=== PATIENT | male | born 1975 | race African-American/Black ===

== ENCOUNTER 2017-02-08 17:13 | Inpatient (IN) | payer OTHER ==
[2017-02-08 21:01] VITALS: BMI 40.8
--- NOTE | 2017-02-08 21:17 | HP ---
CIWA Score - CIWA Score Nausea/Vomitin-Mild Nausea/No Vomiting Muscle Tremors: 3 Anxiety: 3 Agitation: 2 Paroxysmal Sweats: 2 Orientation: 0-Oriented Tacttile Disturbances: 1-Very Mild Itch/Numbness Auditory Disturbances: 1-Very Mild Visual Disturbances: 1-Very Mild Sensitivity Headache: 1-Very Mild CIWA-Ar Total Score: 15 Admission ROS S - HPI Chief Complaint: WITHDRAWAL SYMPTOMS Allergies/Adverse Reactions: Allergies Allergy/AdvReac Type Severity Reaction Status Date / Time No Known Allergies Allergy Verified 02/08/17 21:15 History of Present Illness: 41 Y.O. MAN WITH AN EXTENSIVE HISTORY OF DRUG AND ALCOHOL DEPENDENCE IS HERE SEEKING DETOX. HE REPORTS HE PREVIOUSLY COMPLETED DETOX AT ANOTHER FACILITY BUT THIS IS HIS FIRST ADMISSION TO [facility]. DOES NOT HAVE A SIGNIFICANT PERIOD OF SOBRIETY. Exam Limitations: No Limitations - Ebola screening Have you traveled outside of the country in the last 21 days: No Have you had contact with anyone from an Ebola affected area: No Have you been sick,other than usual withdrawal symptoms: No Do you have a fever: No - Review of Systems Constitutional: Unintentional Wgt. Loss EENT: reports: No Symptoms Reported Respiratory: reports: No Symptoms reported Cardiac: reports: No Symptoms Reported GI: reports: Vomiting, Abdominal cramping : reports: No Symptoms Reported Musculoskeletal: reports: No Symptoms Reported Integumentary: reports: No Symptoms Reported Neuro: reports: No Symptoms reported Endocrine: reports: No Symptoms Reported Hematology: reports: No Symptoms Reported Psychiatric: reports: Mood/Affect Appropiate, Orientated x3 Other Systems: Reviewed and Negative Patient History - Patient Medical History Hx Anemia: No Hx Asthma: No Hx Chronic Obstructive Pulmonary Disease (COPD): No Hx Cancer: No Hx Cardiac Disorders: No Hx Congestive Heart Failure: No Hx Hypertension: No Hx Hypercholesterolemia: No Hx Pacemaker: No HX Cerebrovascular Accident: No Hx Seizures: No Hx Dementia: No Hx Diabetes: No Hx Gastrointestinal Disorders: No Hx Liver Disease: No Hx Genitourinary Disorders: No Hx Sexually Transmitted Disorders: No Hx Renal Disease (ESRD): No Hx Thyroid Disease: No Hx Human Immunodeficiency Virus (HIV): No Hx Hepatitis C: No Hx Depression: No Hx Suicide Attempt: No Hx Bipolar Disorder: No Hx Schizophrenia: No Other Medical History: HISTORY OF TUBERCULOSIS (TREATED IN 2000) - Patient Surgical History Past Surgical History: No - PPD History Previous Implant?: No Documented Results: Positive w/o proof Implanted On Prior [facility] Admission?: No Results: NEEDS CXR PPD to be Administered?: No - Reproductive History Patient is a Female of Child Bearing Age (11 -55 yrs old): No - Smoking Cessation Smoking history: Current every day smoker Have you smoked in the past 12 months: Yes Aproximately how many cigarettes per day: 10 Hx Chewing Tobacco Use: No Initiated information on smoking cessation: Yes 'Breaking Loose' booklet given: 02/08/17 - Substance & Tx. History Hx Alcohol Use: Yes Hx Substance Use: Yes Substance Use Type: Alcohol, Marijuana Hx Substance Use Treatment: Yes (DETOX-DOES NOT RECALL WHEN & WHERE BUT NOT RECENTLY) - Substances Abused Alcohol Frequency: Daily Amount used: 5-6 PINTS OF LIQUOR Age of first use: 16 Date of Last Use: 02/08/17 Marijuana/Hashish Route: Smoking Frequency: Daily Amount used: $40 Age of first use: 16 Date of Last Use: 02/08/17 Family Disease History - Family Disease History Family History: Denies Admission Physical Exam [facility] - Vital Signs Vital Signs: Vital Signs - 24 hr 02/08/17 20:59 Temperature 97.8 F Pulse Rate 73 Respiratory 20 Rate Blood Pressure 128/74 - Physical General Appearance: Yes: No Apparent Distress, Nourished HEENTM: Yes: Hearing grossly Normal, Normocephalic, Normal Voice Respiratory: Yes: Lungs Clear, Normal Breath Sounds, No Respiratory Distress, No Accessory Muscle Use Neck: Yes: No masses,lesions,Nodules, Trachea in good position Breast: Yes: Breast Exam Deferred Cardiology: Yes: Regular Rhythm, Regular Rate, Edema (B/L LE) Abdominal: Yes: Normal Bowel Sounds, Non Tender, Flat Genitourinary: Yes: Other (NO COMPLAINTS REPORTED) Musculoskeletal: Yes: Gait Steady Extremities: Yes: Pedal Edema, Swelling (B/L LE) Neurological: Yes: Fully Oriented, Alert, Motor Strength 5/5, Normal Mood/Affect , Normal Response Integumentary: Yes: Pitting Edema (B/L LE) Lymphatic: Yes: Within Normal Limits - Diagnostic (1) Alcohol dependence with uncomplicated withdrawal Current Visit: Yes Status: Chronic (2) Cannabis dependence, uncomplicated Current Visit: Yes Status: Chronic (3) History of tuberculosis Current Visit: Yes Status: Chronic (4) Venous insufficiency of both lower extremities Current Visit: Yes Status: Chronic (5) Edema of both lower legs due to peripheral venous insufficiency Current Visit: Yes Status: Chronic (6) Obese Current Visit: Yes Status: Chronic Cleared for Admission [facility] - Detox or Rehab [facility] Level of Care: Medically Managed Detox Regimen/Protocol: Librium S Breath Alcohol Content Breath Alcohol Content: 0 Urine Drug Screen - Results Drug Screen Negative: No Urine Drug Screen Results: THC-Marijuana
[2017-02-08] MEDS ORDERED: chlordiazePOXIDE HCL 25 MG CAPSULE PO ONE (21:24)
[2017-02-08] MEDS ORDERED: guaiFENesin/D-METHORPHAN HB 10 ML UNIT-DOSE CUPS PO PRN (21:24)
[2017-02-08] MEDS ORDERED: IBUPROFEN 400 MG TABLET (FP) PO PRN (21:24)
[2017-02-08] MEDS ORDERED: NICOTINE POLACRILEX 2 MG GUM BUC PRN (21:24)
[2017-02-08] MEDS ORDERED: LOPERAMIDE HCL 2 MG CAPSULE PO PRN (21:24)
[2017-02-08] MEDS ORDERED: MAGNESIUM CITRATE 300 ML BOTTLE PO PRN (21:24)
[2017-02-08] MEDS ORDERED: diphenhydrAMINE HCL 50 MG CAPSULE PO PRN (21:24)
[2017-02-08] MEDS ORDERED: ACETAMINOPHEN 325 MG TABLET (FP) PO PRN (21:24)
[2017-02-08] MEDS ORDERED: MAG HYDROX/AL HYDROX/SIMETH 30 ML UNIT-DOSE CUP PO PRN (21:24)
[2017-02-08] MEDS ORDERED: hydrOXYzine PAMOATE 50 MG CAPSULE (FP) PO PRN (21:24)
[2017-02-08] MEDS ORDERED: MAGNESIUM HYDROX 2400MG/30ML ORAL SUSPENSION 30 ML CUP PO PRN (21:24)
[2017-02-08] MEDS ORDERED: chlordiazePOXIDE HCL 25 MG CAPSULE PO PRN (21:24)
[2017-02-08] MEDS ORDERED: MENTHOL/PHENOL 1 EACH UD MM PRN (21:24)
[2017-02-08] MEDS ORDERED: P-EPHED 60MG/TRIPROLIDI 2.5MG TABLET PO PRN (21:24)
[2017-02-08] MEDS ORDERED: THIAMINE HCL 100 MG TABLET (FP) PO SCH (22:00)
[2017-02-08] MEDS: chlordiazePOXIDE HCL 25 MG CAPSULE PO SCH (23:14)
[2017-02-09] MEDS: chlordiazePOXIDE HCL 25 MG CAPSULE PO SCH ×2 (05:57→10:54)
[2017-02-09 09:54] LABS: MCH 29.5 pg (25.7-33.7); MCHC 33.6 g/dl (32.0-35.9); MEAN CELL VOLUME 87.8 fl (80-96); MEAN PLT VOLUME 10.3 fl (7.5-11.1); PLATELET COUNT 203 K/MM3 (134-434); RDW 13.6 % (11.9-15.9); WHITE BLOOD COUNT 9.7 K/mm3 (4.0-10.0)
[2017-02-09 09:55] LABS: ALBUMIN 3.3 g/dl (3.4-5.0); ANION GAP 6 (8-16); CALCIUM 9.1 mg/dL (8.5-10.1); CO2 28 mmol/L (21-32); CREATININE 1.1 mg/dL (0.7-1.3); GLUCOSE,RANDOM 86 mg/dL (74-106); SGOT/AST 17 U/L (15-37); SGPT/ALT 28 U/L (12-78)
[2017-02-09 09:57] LABS: ALK PHOS 64 U/L (45-117); BILIRUBIN,TOTAL 0.6 mg/dL (0.2-1.0); TOT PROT 6.2 g/dl (6.4-8.2)
[2017-02-09] MEDS ORDERED: PRENATAL VITAMINS W/ FOLIC ACID TABLET (FP) PO SCH (10:00)
[2017-02-09] MEDS ORDERED: NICOTINE 14 MG/24 HOURS TOPICAL PATCH TD SCH (10:00)
[2017-02-09 10:48] LABS: HIV 1 & 2 AB NEGATIVE; HIV 1 AGp24 NEGATIVE
--- NOTE | 2017-02-09 11:30 | PN ---
[facility] CIWA - CIWA Score Nausea/Vomitin-No Nausea/No Vomiting Muscle Tremors: 4-Moderate,w/Arms Extend Anxiety: 4-Mod. Anxious/Guarded Agitation: 4-Moderately Restless Paroxysmal Sweats: 1-Minimal Palms Moist Orientation: 0-Oriented Tacttile Disturbances: 3-Moderate Itch/Numb/Burn Auditory Disturbances: 0-None Visual Disturbances: 0-None Headache: 0-None Present CIWA-Ar Total Score: 16 S Progress Note (SOAP) Subjective: ANXIETY,DIARRHEA, SWEATS. Objective: 02/09/17 11:28 Vital Signs Temperature 98.6 F 02/09/17 09:33 Pulse Rate 58 L 02/09/17 09:33 Respiratory Rate 18 02/09/17 09:33 Blood Pressure 124/81 02/09/17 09:33 O2 Sat by Pulse Oximetry (%) Laboratory Last Values WBC 9.7 K/mm3 (4.0-10.0) 02/09/17 07:00 RBC 4.64 M/mm3 (4.00-5.60) 02/09/17 07:00 Hgb 13.7 GM/dL (11.7-16.9) 02/09/17 07:00 Hct 40.7 % (35.4-49) 02/09/17 07:00 MCV 87.8 fl (80-96) 02/09/17 07:00 MCHC 33.6 g/dl (32.0-35.9) 02/09/17 07:00 RDW 13.6 % (11.9-15.9) 02/09/17 07:00 Plt Count 203 K/MM3 (134-434) 02/09/17 07:00 MPV 10.3 fl (7.5-11.1) 02/09/17 07:00 Sodium 143 mmol/L (136-145) 02/09/17 07:00 Potassium 4.7 mmol/L (3.5-5.1) 02/09/17 07:00 Chloride 109 mmol/L (98-107) H 02/09/17 07:00 Carbon Dioxide 28 mmol/L (21-32) 02/09/17 07:00 Anion Gap 6 (8-16) L 02/09/17 07:00 BUN 15 mg/dL (7-18) 02/09/17 07:00 Creatinine 1.1 mg/dL (0.7-1.3) 02/09/17 07:00 Creat Clearance w eGFR > 60 (>60) 02/09/17 07:00 Random Glucose 86 mg/dL (74-106) 02/09/17 07:00 Calcium 9.1 mg/dL (8.5-10.1) 02/09/17 07:00 Total Bilirubin 0.6 mg/dL (0.2-1.0) 02/09/17 07:00 AST 17 U/L (15-37) 02/09/17 07:00 ALT 28 U/L (12-78) 02/09/17 07:00 Alkaline Phosphatase 64 U/L (45-117) 02/09/17 07:00 Total Protein 6.2 g/dl (6.4-8.2) L 02/09/17 07:00 Albumin 3.3 g/dl (3.4-5.0) L 02/09/17 07:00 HIV 1&2 Antibody Screen Negative 02/09/17 07:00 HIV P24 Antigen Negative 02/09/17 07:00 Assessment: 02/09/17 11:29 WITHDRAWAL SX Plan: CONTINUE DETOX IMODIUM PRN
[2017-02-09 14:17] VITALS: BP 113/77; PULSE 70; TEMP 95.5
--- NOTE | 2017-02-09 14:24 | PN ---
Psychiatric Progress Note Vital Signs: Vital Signs Period Temp Pulse Resp BP Sys/Nino Pulse Ox Last 24 Hr 97.0 F-98.6 F 58-73 18-20 118-128/74-82 Date of Session: 02/09/17 Chief Complaint:: Violent behavor, HPI: As per nursing reports patient has been masturbating on pablic in a lobby, poice was called, patient promissed not to do this anymore. In an one hour police was called second time after incident with counceller when patient has been threatening counceller talling him to punch to his face. Upon evaluation patient calling other patients to [facility] psychiatric evaluation, Current Medications: Active Medications Generic Name Dose Route Start Last Admin Trade Name Freq PRN Reason Stop Dose Admin Acetaminophen 650 mg 02/08/17 21:24 Tylenol - PO Q4H PRN FEVER OR PAIN Al Hydroxide/Mg Hydroxide 30 ml 02/08/17 21:24 Mylanta Oral Suspension - PO Q6H PRN DYSPEPSIA Chlordiazepoxide HCl 10 mg 02/11/17 23:00 Librium - PO 02/12/17 17:01 [id number] JENNIFER Chlordiazepoxide HCl 25 mg 02/08/17 21:24 Librium - PO 02/11/17 21:23 Q4H PRN WITHDRAWAL(CONT SUBST) Chlordiazepoxide HCl 50 mg 02/08/17 23:00 02/09/17 10:54 Librium - PO 02/09/17 17:01 50 mg [id number] JENNIFER Administration Chlordiazepoxide HCl 25 mg 02/09/17 23:00 Librium - PO 02/10/17 17:01 [id number] JENNIFER Chlordiazepoxide HCl 15 mg 02/10/17 23:00 Librium - PO 02/11/17 17:01 [id number] JENNIFER Diphenhydramine HCl 50 mg 02/08/17 21:24 Benadryl - PO HSMR1 PRN INSOMNIA Eucalyptus/Menthol/Phenol/Sorbitol 1 each 02/08/17 21:24 Cepastat Lozenge - MM Q4H PRN SORE THROAT Guaifenesin 10 ml 02/08/17 21:24 Robitussin Dm - PO Q6H PRN COUGH Hydroxyzine Pamoate 50 mg 02/08/17 21:24 Vistaril - PO Q4H PRN AGITATION Ibuprofen 400 mg 02/08/17 21:24 Motrin - PO Q6H PRN SEVERE PAIN Loperamide HCl 4 mg 02/08/17 21:24 Imodium - PO Q6H PRN DIARRHEA Magnesium Citrate 300 ml 02/08/17 21:24 Citroma - PO Q48H PRN CONSTIPATION Magnesium Hydroxide 30 ml 02/08/17 21:24 Milk Of Magnesia - PO DAILY PRN CONSTIPATION Nicotine 14 mg 02/09/17 10:00 02/09/17 10:55 Nicoderm Patch - TD Not Given DAILY JENNIFER Nicotine Polacrilex 2 mg 02/08/17 21:24 Nicorette Gum - BUC Q2H PRN NICOTINE REPLACEMENT RX Multivit/Folic Acid/Iron 1 tab 02/09/17 10:00 02/09/17 10:54 Vitamins ([facility]) - PO 1 tab DAILY JENNIFER Administration Pseudoephedrine/Triprolidine 1 combo 02/08/17 21:24 Actifed - PO TID PRN NASAL CONGESTION Thiamine HCl 100 mg 02/08/17 22:00 02/08/17 23:09 Vitamin B1 - PO 100 mg HS JENNIFER Administration Provider note:: According to detox protocol patient has to be administratively discharged Mental Status Exam - Mental Status Exam Alert and Oriented to: Person Cognitive Function: Fair Patient Appearance: Unkempt Mood: Nervous, Anxious, Irritable Affect: Inappropriate Patient Behavior: Inappropriate Speech Pattern: Pressured Voice Loudness: Mildly Loud Thought Process: Goal Oriented Thought Disorder: Being Controlled Hallucinations: Denies Suicidal Ideation: Denies Homicidal Ideation: Denies Insight/Judgement: Fair Sleep: Fair Appetite: Weight gain Muscle strength/Tone: Normal Gait/Station: Normal Additional Comments: conflict with medical stuff Psychiatric Treatment Plan - Problem List (1) Alcohol dependence with uncomplicated withdrawal Current Visit: Yes (2) Cannabis dependence, uncomplicated Current Visit: Yes (3) Obese Current Visit: Yes (4) Inappropriate sexual behavior Current Visit: Yes (5) Socially inappropriate behavior Current Visit: Yes Initial treatment plan: Administrative discharge
--- NOTE | 2017-02-09 14:46 | EKG ---
Test Reason : Blood Pressure : / mmHG Vent. Rate : 053 BPM Atrial Rate : 053 BPM P-R Int : 146 ms QRS Dur : 088 ms QT Int : 436 ms P-R-T Axes : 060 005 038 degrees QTc Int : 409 ms SINUS BRADYCARDIA OTHERWISE NORMAL ECG NO PREVIOUS ECGS AVAILABLE Confirmed by MODESTO BETH, RAHEL ([id number]) on 02/09/2017 2:46:10 PM Referred By: John Miner Confirmed By:RAHEL SALVADOR MD
--- NOTE | 2017-02-09 15:00 | DS ---
[facility] Detox Discharge Summary Admission Date: 02/08/17 Discharge Date: 02/09/17 - History Present History: Alcohol Dependence, Cannabis Dependence Additional Comments: TIS DIRECTOR SOCIAL WAS CALLED BY NURSE TO REPORT PATIENT INDECENT EXPOSURE AND MASTURBATION ON THE HALLWAY. PT FURTHER THREATENING THE COUNSELOR IN THE OFFICE STATING "I'LL F--K YOU UP". ROLLOFF TRUCK DRIVER ALSO REPORTED PT EXPOSED HIMSELF SHE APPROACHED THE ROOM FOR PATIENT CARE. PT WAS SEEN BY PSYCH TODAY. PT DISCHARGED PER PROTOCOL FOR INAPPROPRIATE SEXUAL AND SOCIAL BEHAVIOR. ALERT O X3. NAD. Pertinent Past History: OBESITY HX VENOUS INSUFFICIENCY LOWER EXTREMITIES - Physical Exam Results Vital Signs: Vital Signs Temperature 95.5 F L 02/09/17 14:16 Pulse Rate 70 02/09/17 14:16 Respiratory Rate 18 02/09/17 14:16 Blood Pressure 113/77 02/09/17 14:16 O2 Sat by Pulse Oximetry (%) Pertinent Admission Physical Exam Findings: WITHDRAWAL SX - Treatment Hospital Course: Discharged Condition Good - Medication Discharge Medications: Ambulatory Orders NK [No Known Home Medication] 02/08/17 - Diagnosis (1) Inappropriate sexual behavior Current Visit: Yes Status: Acute (2) Socially inappropriate behavior Current Visit: Yes Status: Acute (3) Alcohol dependence with uncomplicated withdrawal Current Visit: Yes Status: Acute (4) Cannabis dependence, uncomplicated Current Visit: Yes Status: Chronic (5) History of tuberculosis Current Visit: Yes Status: Chronic (6) Obese Current Visit: Yes Status: Chronic (7) Edema of both lower legs due to peripheral venous insufficiency Current Visit: Yes Status: Chronic (8) Venous insufficiency of both lower extremities Current Visit: Yes Status: Chronic - AMA Did Patient Leave Against Medical Advice: No (INAPPROPRIATE SEXUAL AND SOCIAL BEHAVIOR)
--- NOTE | 2017-02-09 15:09 | CONSULT ---
[facility] Psychiatric Consult - Data Date of interview: 02/09/17 Admission source: [facility] Identifying data: This is 41 years old male with no past psychiatric history intoxicated with Alcohol Nicotine and Cannabis. was called to evaluate patient after medical stuff reporte two incidents, inappropriate sexual behavior and conflict with counceller. Substance Abuse History: - Smoking Cessation. Smoking history: Current every day smoker. Have you smoked in the past 12 months: Yes. Aproximately how many cigarettes per day: 10. Hx Chewing Tobacco Use: No. Initiated information on smoking cessation: Yes. 'Breaking Loose' booklet given: 02/08/17. - Substance & Tx. History. Hx Alcohol Use: Yes. Hx Substance Use: Yes. Substance Use Type : Alcohol, Marijuana. Hx Substance Use Treatment: Yes (DETOX-DOES NOT RECALL WHEN & WHERE BUT NOT RECENTLY). - Substances Abused. Alcohol. Frequency: Daily. Amount used: 5-6 PINTS OF LIQUOR. Age of first use: 16. Date of Last Use: 02/08/17. Marijuana/Hashish. Route: Smoking. Frequency: Daily. Amount used: $40. Age of first use: 16. Date of Last Use: 02/08/17 Medical History: Obesity, History of TBC Psychiatric History: As per nursing reports patient has been masturbating on pablic in a lobby, security was called, patient promissed not to do this anymore. In an one hour police was called second time after second incident with counceller when patient has been threatening counceller talling him to punch to his face. Upon evaluation patient called other patients to be eyewhitness during psychiatric evaluation, when keno writer/runner told patient to be evaluated face to face patient has been relactant to do that, finally patient agrees to be evaluated. Physical/Sexual Abuse/Trauma History: Denies Additional Comment: Observation. Incidents with medical stuff and Counceller Mental Status Exam - Mental Status Exam Alert and Oriented to: Person Cognitive Function: Fair Patient Appearance: Unkempt Mood: Anxious Affect: Mood Congruent Patient Behavior: Talkative, Agitated Speech Pattern: Excessive Voice Loudness: Mildly Loud Thought Process: Goal Oriented Thought Disorder: Being Controlled Hallucinations: Denies Suicidal Ideation: Denies Homicidal Ideation: Denies Insight/Judgement: Fair Sleep: Fair Appetite: Weight gain Muscle strength/Tone: Normal Gait/Station: Normal Additional Comments: Observation Psychiatric Findings - Problem List ([place] 1, 2,3) (1) Alcohol dependence with uncomplicated withdrawal Current Visit: Yes Status: Acute (2) Cannabis dependence, uncomplicated Current Visit: Yes Status: Chronic (3) Obese Current Visit: Yes Status: Chronic (4) Inappropriate sexual behavior Current Visit: Yes Status: Acute (5) Socially inappropriate behavior Current Visit: Yes Status: Acute (6) Nicotine dependence Current Visit: Yes Status: Acute - Initial Treatment Plan Initial Treatment Plan: Administrative discharge after incident with counceller
[2017-02-09] MEDS ORDERED: chlordiazePOXIDE HCL 25 MG CAPSULE PO SCH (23:00)
[2017-02-10] MEDS ORDERED: chlordiazePOXIDE 5 MG CAPSULE PO SCH (23:00)
[2017-02-11] MEDS ORDERED: chlordiazePOXIDE HCL 10 MG CAPSULE PO SCH (23:00)
== END 2017-02-09 14:00 | disposition home or self-care (01) | DRG 774 ==
LOC: YASAS 17:13 → Y3N 22:00
PROVIDERS: ADMIT Internal Medicine; ATTEND Internal Medicine
PROC: HZ2ZZZZ Detoxification Services for Substance Abuse Treatment (ICD-10-PCS; principal; 2017-02-08)
DX: F14.20 Cocaine dependence, uncomplicated (principal); F17.210 Nicotine dependence, cigarettes, uncomplicated; E66.9 Obesity, unspecified; Z68.41 Body mass index [BMI] 40.0-44.9, adult; Z86.11 Personal history of tuberculosis; I73.9 Peripheral vascular disease, unspecified; R60.9 Edema, unspecified; F66 Other sexual disorders; F91.8 Other conduct disorders
CPT/HCPCS: 36415; 71020-TC; 80053; 85027; 86593; 86803; 87389; 93005; 93010

== ENCOUNTER 2017-03-15 14:31 | Inpatient (IN) | payer OTHER ==
[2017-03-15 18:03] VITALS: BMI 38.9
--- NOTE | 2017-03-15 20:29 | HP ---
Admission ROS [facility] - [facility] Chief Complaint: i am here for rehab from alcohol and marijuana Allergies/Adverse Reactions: Allergies Allergy/AdvReac Type Severity Reaction Status Date / Time No Known Allergies Allergy Verified 03/15/17 19:12 History of Present Illness: this 41 years old male with alcohol and marijuana dependence,seeking rehab,last treatment 02/08/17 to 02/09/17 not completed denied medical problem nicotine dependence longest period of sobriety 2 years Exam Limitations: No Limitations - Ebola screening Have you been sick,other than usual withdrawal symptoms: No - Review of Systems Constitutional: No Symptoms Reported EENT: reports: No Symptoms Reported Respiratory: reports: No Symptoms reported Cardiac: reports: No Symptoms Reported GI: reports: No Symptoms Reported : reports: No Symptoms Reported Musculoskeletal: reports: No Symptoms Reported Integumentary: reports: No Symptoms Reported Neuro: reports: No Symptoms reported Endocrine: reports: No Symptoms Reported Hematology: reports: No Symptoms Reported Psychiatric: reports: No Sypmtoms Reported Patient History - Patient Medical History Hx Anemia: No Hx Asthma: No Hx Chronic Obstructive Pulmonary Disease (COPD): No Hx Cancer: No Hx Cardiac Disorders: No Hx Congestive Heart Failure: No Hx Hypertension: No Hx Hypercholesterolemia: No Hx Pacemaker: No HX Cerebrovascular Accident: No Hx Seizures: No Hx Dementia: No Hx Diabetes: No Hx Gastrointestinal Disorders: No Hx Liver Disease: No Hx Genitourinary Disorders: No Hx Sexually Transmitted Disorders: No Hx Renal Disease (ESRD): No Hx Thyroid Disease: No Hx Human Immunodeficiency Virus (HIV): No (last 03/08 negative) Hx Hepatitis C: No Hx Depression: No Hx Suicide Attempt: No Hx Bipolar Disorder: No Hx Schizophrenia: No Other Medical History: no suicidal,no homicidal - Patient Surgical History Past Surgical History: No Hx Neurologic Surgery: No Hx Cataract Extraction: No Hx Cardiac Surgery: No Hx Lung Surgery: No Hx Breast Surgery: No Hx Breast Biopsy: No Hx Abdominal Surgery: No Hx Appendectomy: No Hx Cholecystectomy: No Hx Genitourinary Surgery: No Hx Section: No Hx Orthopedic Surgery: No Anesthesia Reaction: No - PPD History Results: NEEDS CXR PPD to be Administered?: No - Smoking Cessation Smoking history: Current every day smoker Have you smoked in the past 12 months: Yes Aproximately how many cigarettes per day: 10 Cigars Per Day: 0 Hx Chewing Tobacco Use: No Initiated information on smoking cessation: Yes 'Breaking Loose' booklet given: 03/15/17 - Substance & Tx. History Hx Alcohol Use: Yes Hx Substance Use: Yes Substance Use Type: Alcohol, Marijuana Hx Substance Use Treatment: Yes ([facility] 02/08/17 to 02/09/17 not complete) - Substances Abused Alcohol Route: Oral Frequency: Daily Amount used: 3 pints of vodka,rum/6 packs of beer Age of first use: 16 Date of Last Use: 03/15/17 Marijuana/Hashish Route: Smoking Frequency: Daily Amount used: 30$ Age of first use: 16 Date of Last Use: 03/15/17 Family Disease History - Family Disease History Family History: Denies Admission Physical Exam [facility] - Vital Signs Vital Signs: Vital Signs - 24 hr 03/15/17 18:02 Temperature 96.7 F L Pulse Rate 55 L Respiratory 20 Rate Blood Pressure 128/87 - Physical General Appearance: Yes: Within Normal Limits HEENTM: Yes: Within Normal Limits, Hearing grossly Normal, Normocephalic, Pharynx Normal Respiratory: Yes: Lungs Clear, Normal Breath Sounds, No Respiratory Distress Neck: Yes: Within Normal Limits, Supple, Trachea in good position Breast: Yes: Within Normal Limits Cardiology: Yes: Within Normal Limits, Regular Rhythm, Regular Rate, S1, S2 Abdominal: Yes: Within Normal Limits, Normal Bowel Sounds, Non Tender, Flat, Soft Genitourinary: Yes: Within Normal Limits Back: Yes: Within Normal Limits, Normal Inspection Musculoskeletal: Yes: Within Normal Limits Extremities: Yes: Within Normal Limits, Normal Inspection, Normal Range of Motion, Other (both legs unna boot stated has ulcers both legs both feet no swelling) Neurological: Yes: tafe lecturer II-XII NML intact, Fully Oriented, Alert, Motor Strength 5/5 Integumentary: Yes: Within Normal Limits, Dry Lymphatic: Yes: Within Normal Limits - Diagnostic (1) Alcohol dependence Current Visit: Yes Status: Acute (2) Nicotine dependence Current Visit: No Status: Acute (3) Cannabis dependence, uncomplicated Current Visit: No Status: Chronic (4) Obese Current Visit: No Status: Chronic (5) Venous insufficiency of both lower extremities Current Visit: No Status: Chronic Cleared for Admission [facility] - Detox or Rehab Claeared for Rehab Admission: Yes [facility] Breath Alcohol Content Breath Alcohol Content: 0 Urine Drug Screen - Results Drug Screen Negative: No Urine Drug Screen Results: THC-Marijuana
[2017-03-15] MEDS ORDERED: hydrOXYzine PAMOATE 50 MG CAPSULE (FP) PO PRN (20:44)
[2017-03-15] MEDS ORDERED: MAGNESIUM HYDROX 2400MG/30ML ORAL SUSPENSION 30 ML CUP PO PRN (20:44)
[2017-03-15] MEDS ORDERED: MENTHOL/PHENOL 1 EACH UD MM PRN (20:44)
[2017-03-15] MEDS ORDERED: ACETAMINOPHEN 325 MG TABLET (FP) PO PRN (20:44)
[2017-03-15] MEDS ORDERED: MAG HYDROX/AL HYDROX/SIMETH 30 ML UNIT-DOSE CUP PO PRN (20:44)
[2017-03-15] MEDS ORDERED: MAGNESIUM CITRATE 300 ML BOTTLE PO PRN (20:44)
[2017-03-15] MEDS ORDERED: diphenhydrAMINE HCL 50 MG CAPSULE PO PRN (20:44)
[2017-03-15] MEDS ORDERED: P-EPHED 60MG/TRIPROLIDI 2.5MG TABLET PO PRN (20:44)
[2017-03-15] MEDS ORDERED: LOPERAMIDE HCL 2 MG CAPSULE PO PRN (20:44)
[2017-03-15] MEDS ORDERED: IBUPROFEN 400 MG TABLET (FP) PO PRN (20:44)
[2017-03-15] MEDS ORDERED: guaiFENesin/D-METHORPHAN HB 10 ML UNIT-DOSE CUPS PO PRN (20:44)
[2017-03-15] MEDS: THIAMINE HCL 100 MG TABLET (FP) PO SCH ×2 (21:46→22:59)
[2017-03-15 23:15] LABS: URINE APPEARANCE CLEAR; URINE BILIRUBIN NEGATIVE (NEGATIVE); URINE BLOOD 3+ (NEGATIVE); URINE COLOR LTYELLOW; URINE GLUCOSE (UA) NEGATIVE (NEGATIVE); URINE KETONE NEGATIVE (NEGATIVE); URINE LEUK ESTERASE NEGATIVE (NEGATIVE); URINE NITRITE NEGATIVE (NEGATIVE); URINE PROTEIN NEGATIVE (NEGATIVE); URINE UROBILINOGEN NEGATIVE mg/dL (0.2-1.0)
[2017-03-15 23:19] LABS: URINE MUCUS RARE; URINE RBC 292 /hpf (0-3); URINE WBC 14 /hpf (3-5)
[2017-03-16 07:00] VITALS: BP 121/71; PULSE 61; TEMP 97.4
[2017-03-16] MEDS ORDERED: PRENATAL VITAMINS W/ FOLIC ACID TABLET (FP) PO SCH (10:00)
[2017-03-16 10:24] LABS: MCH 29.2 pg (25.7-33.7); MCHC 33.9 g/dl (32.0-35.9); MEAN CELL VOLUME 86.2 fl (80-96); MEAN PLT VOLUME 10.3 fl (7.5-11.1); PLATELET COUNT 234 K/MM3 (134-434); WHITE BLOOD COUNT 13.7 K/mm3 (4.0-10.0)
--- NOTE | 2017-03-16 10:33 | PN ---
[facility] Progress Note Note: As was decided by team meeting patient was administratively discharged due to inappropriate behavior on the unit, he was previously(02/09/17) discharged from detox for the same reason (masturbating in 3 different occasions), please see medical staff notes. Patient refused the referral. Patient denies suicidal and homicidal thoughts, he is stable for discharge,
[2017-03-16 10:44] LABS: ALBUMIN 3.4 g/dl (3.4-5.0); ALK PHOS 62 U/L (45-117); ANION GAP 7 (8-16); BILIRUBIN,TOTAL 0.6 mg/dL (0.2-1.0); CALCIUM 9.2 mg/dL (8.5-10.1); CO2 26 mmol/L (21-32); CREATININE 0.9 mg/dL (0.7-1.3); GLUCOSE,RANDOM 86 mg/dL (74-106); SGOT/AST 21 U/L (15-37); SGPT/ALT 23 U/L (12-78); TOT PROT 6.3 g/dl (6.4-8.2)
[2017-03-16] MEDS ORDERED: PNEUMOC 13-VAL CONJ-DIP CRM/PF 0.5 ML DISP.SYRIN IM ONE (12:00)
[2017-03-16] MEDS ORDERED: PNEUMOCOCCAL 23 VACCINE 0.5 ML VIAL IM ONE (12:00)
--- NOTE | 2017-03-16 21:46 | EKG ---
Test Reason : Blood Pressure : / mmHG Vent. Rate : 061 BPM Atrial Rate : 061 BPM P-R Int : 156 ms QRS Dur : 092 ms QT Int : 424 ms P-R-T Axes : 056 -07 033 degrees QTc Int : 426 ms NORMAL SINUS RHYTHM NORMAL ECG WHEN COMPARED WITH ECG OF 08-FEB-2017 22:13, NO SIGNIFICANT CHANGE WAS FOUND Confirmed by MYLES CHAMPAGNE MD ([id number]) on 03/16/2017 9:46:09 PM Referred By: Sabina Gonzalez Confirmed By:MYLES CHAMPAGNE MD
== END 2017-03-16 10:00 | disposition home or self-care (01) | DRG 772 ==
LOC: YASAS 14:31 → Y5N 19:27
PROVIDERS: ADMIT Psychiatry & Neurology Psychiatry; ATTEND Psychiatry & Neurology Psychiatry
PROC: HZ42ZZZ Group Counseling for Substance Abuse Treatment, Cognitive-Behavioral (ICD-10-PCS; principal; 2017-03-16)
DX: F10.20 Alcohol dependence, uncomplicated (principal); F12.20 Cannabis dependence, uncomplicated; F17.210 Nicotine dependence, cigarettes, uncomplicated; I87.2 Venous insufficiency (chronic) (peripheral); E66.09 Other obesity due to excess calories; Z68.39 Body mass index [BMI] 39.0-39.9, adult
CPT/HCPCS: 36415; 80053; 81003; 81015; 85027; 86593; 93005; 93010

== ENCOUNTER 2017-12-13 20:15 | Inpatient (IN) | payer OTHER ==
[2017-12-13 21:05] VITALS: BMI 38.5
[2017-12-13] MEDS ORDERED: MELATONIN 5 MG TABLETS PO PRN (22:00)
--- NOTE | 2017-12-13 23:49 | HP ---
CIWA Score - CIWA Score Nausea/Vomitin-Mild Nausea/No Vomiting Muscle Tremors: 3 Anxiety: 1-Mildly Anxious Agitation: 4-Moderately Restless Paroxysmal Sweats: No Perspiration Orientation: 1-Uncertain about Date Tacttile Disturbances: 0-None Auditory Disturbances: 0-None Visual Disturbances: 0-None Headache: 3-Moderate CIWA-Ar Total Score: 13 Admission ROS BHS - HPI Chief Complaint: Alcohol withdrawal symptoms Allergies/Adverse Reactions: Allergies Allergy/AdvReac Type Severity Reaction Status Date / Time No Known Allergies Allergy Verified 12/13/17 22:42 History of Present Illness: 42 years old male with a long history of alcohol dependence is seeking admission to detox. Patient has been to previous detox and reports insignificant period of sobriety. He has past medical history of TB (treated with INH ) and depression. He denies suicide attempt or suicidal ideation at this time. Exam Limitations: No Limitations - Ebola screening Have you traveled outside of the country in the last 21 days: No Have you had contact with anyone from an Ebola affected area: No Have you been sick,other than usual withdrawal symptoms: No Do you have a fever: No - Review of Systems Constitutional: Chills, Malaise, Night Sweats, Changes in sleep EENT: reports: No Symptoms Reported Respiratory: reports: No Symptoms reported, Productive cough GI: reports: Nausea, Poor Appetite, Poor Fluid Intake, Abdominal cramping : reports: No Symptoms Reported Musculoskeletal: reports: No Symptoms Reported Integumentary: reports: Dryness Neuro: reports: Headache, Tingling, Tremors Endocrine: reports: No Symptoms Reported Hematology: reports: No Symptoms Reported Psychiatric: reports: Anxious, Depressed Other Systems: Reviewed and Negative Patient History - Patient Medical History Hx Anemia: No Hx Asthma: No Hx Chronic Obstructive Pulmonary Disease (COPD): No Hx Cancer: No Hx Cardiac Disorders: No Hx Congestive Heart Failure: No Hx Hypertension: No Hx Hypercholesterolemia: No Hx Pacemaker: No HX Cerebrovascular Accident: No Hx Seizures: No Hx Dementia: No Hx Diabetes: No Hx Gastrointestinal Disorders: No Hx Liver Disease: No Hx Genitourinary Disorders: No Hx Sexually Transmitted Disorders: No Hx Renal Disease (ESRD): No Hx Thyroid Disease: No Hx Human Immunodeficiency Virus (HIV): No (last 03/08 negative) Hx Hepatitis C: No Hx Depression: Yes (Not on medication) Hx Suicide Attempt: No Hx Bipolar Disorder: No Hx Schizophrenia: No Other Medical History: TB (treated) - Patient Surgical History Past Surgical History: No - PPD History Previous Implant?: Yes (H/O TB (TREATED WITH INH) IN2001) Documented Results: Positive w/proof Results: NEEDS CXR PPD to be Administered?: No - Reproductive History Patient is a Female of Child Bearing Age (11 -55 yrs old): No (MALE ) - Smoking Cessation Smoking history: Current every day smoker Have you smoked in the past 12 months: Yes Aproximately how many cigarettes per day: 10 Cigars Per Day: 0 Hx Chewing Tobacco Use: No Initiated information on smoking cessation: Yes 'Breaking Loose' booklet given: 12/13/17 - Substance & Tx. History Hx Alcohol Use: Yes Hx Substance Use: Yes Substance Use Type: Marijuana Hx Substance Use Treatment: Yes ([facility]) - Substances Abused Alcohol Route: Oral Frequency: Daily Amount used: LIQUOR- 3 PINTS, BEER- 2 SIX PACK Age of first use: 16 Date of Last Use: 12/13/17 Family Disease History - Family Disease History Family History: Denies Admission Physical Exam [facility] - Vital Signs Vital Signs: Vital Signs - 24 hr 12/13/17 21:03 Pulse Rate 79 Respiratory 20 Rate Blood Pressure 121/69 - Physical General Appearance: Yes: Moderate Distress, Tremorous, Irritable, Anxious HEENTM: Yes: EOMI, Normal ENT Inspection, Normal Voice, REBEKAH Respiratory: Yes: Lungs Clear, Normal Breath Sounds, No Respiratory Distress Neck: Yes: Supple Breast: Yes: Breast Exam Deferred Cardiology: Yes: Regular Rhythm, Regular Rate, S1, S2 Abdominal: Yes: Normal Bowel Sounds, Soft Genitourinary: Yes: Within Normal Limits Back: Yes: Normal Inspection Musculoskeletal: Yes: Within Normal Limits Extremities: Yes: Tremors Neurological: Yes: Alert, Normal Mood/Affect Integumentary: Yes: Dry Lymphatic: Yes: Within Normal Limits - Diagnostic (1) Depressed Current Visit: Yes Status: Chronic Qualifiers: Depression Type: unspecified Qualified Code(s): F32.9 - Major depressive disorder, single episode, unspecified (2) Alcohol dependence with uncomplicated withdrawal Current Visit: No Status: Chronic (3) Nicotine dependence Current Visit: Yes Status: Chronic (4) History of tuberculosis Current Visit: No Status: Chronic Cleared for Admission [facility] - Detox or Rehab [facility] Level of Care: Medically Managed Detox Regimen/Protocol: Librium [facility] Breath Alcohol Content Breath Alcohol Content: 0 Urine Drug Screen - Results Drug Screen Negative: No Urine Drug Screen Results: THC-Marijuana
[2017-12-13] MEDS ORDERED: MENTHOL/PHENOL 1 EACH UD MM PRN (23:57)
[2017-12-13] MEDS ORDERED: IBUPROFEN 400 MG TABLET (FP) PO PRN (23:57)
[2017-12-13] MEDS ORDERED: MAG HYDROX/AL HYDROX/SIMETH 30 ML UNIT-DOSE CUP PO PRN (23:57)
[2017-12-13] MEDS ORDERED: MAGNESIUM HYDROX 2400MG/30ML ORAL SUSPENSION 30 ML CUP PO PRN (23:57)
[2017-12-13] MEDS ORDERED: chlordiazePOXIDE HCL 25 MG CAPSULE PO ONE (23:57)
[2017-12-13] MEDS ORDERED: P-EPHED 60MG/TRIPROLIDI 2.5MG TABLET PO PRN (23:57)
[2017-12-13] MEDS ORDERED: guaiFENesin/D-METHORPHAN HB 10 ML UNIT-DOSE CUPS PO PRN (23:57)
[2017-12-13] MEDS ORDERED: NICOTINE POLACRILEX 2 MG GUM BC PRN (23:57)
[2017-12-13] MEDS ORDERED: ACETAMINOPHEN 325 MG TABLET (FP) PO PRN (23:57)
[2017-12-13] MEDS ORDERED: MAGNESIUM CITRATE 300 ML BOTTLE PO PRN (23:57)
[2017-12-13] MEDS ORDERED: chlordiazePOXIDE HCL 25 MG CAPSULE PO PRN (23:57)
[2017-12-13] MEDS ORDERED: LOPERAMIDE HCL 2 MG CAPSULE PO PRN (23:57)
[2017-12-14] MEDS ORDERED: chlordiazePOXIDE HCL 25 MG CAPSULE PO PRN (04:21)
[2017-12-14] MEDS: chlordiazePOXIDE HCL 25 MG CAPSULE PO SCH ×6 (04:29→23:13)
[2017-12-14] MEDS ORDERED: chlordiazePOXIDE HCL 25 MG CAPSULE PO SCH (05:00)
[2017-12-14 10:27] LABS: HEMOGLOBIN 13.6 GM/dL (11.7-16.9); MCH 29.3 pg (25.7-33.7); MCHC 33.3 g/dl (32.0-35.9); MEAN CELL VOLUME 88.1 fl (80-96); MEAN PLT VOLUME 9.4 fl (7.5-11.1); PLATELET COUNT 208 K/MM3 (134-434); RBC 4.65 M/mm3 (4.00-5.60); RDW 14.1 % (11.9-15.9); WHITE BLOOD COUNT 10.6 K/mm3 (4.0-10.0)
--- NOTE | 2017-12-14 10:44 | PN ---
S CIWA - CIWA Score Nausea/Vomitin-No Nausea/No Vomiting Muscle Tremors: 4-Moderate,w/Arms Extend Anxiety: 4-Mod. Anxious/Guarded Agitation: 4-Moderately Restless Paroxysmal Sweats: 1-Minimal Palms Moist Orientation: 0-Oriented Tacttile Disturbances: 0-None Auditory Disturbances: 0-None Visual Disturbances: 0-None Headache: 0-None Present CIWA-Ar Total Score: 13 BHS Progress Note (SOAP) Subjective: ANXIETY,SWEATS,SLIGHT TREMORS,TIREDNESS. Objective: 12/14/17 10:42 Last Vital Signs Temp Pulse Resp BP Pulse Ox 97.9 F 65 20 118/75 12/14/17 09:55 12/14/17 09:55 12/14/17 09:55 12/14/17 09:55 Laboratory Tests 12/14/17 07:30 WBC 10.6 H RBC 4.65 Hgb 13.6 Hct 41.0 MCV 88.1 MCH 29.3 MCHC 33.3 RDW 14.1 Plt Count 208 MPV 9.4 OTHER LABS PENDING Assessment: 12/14/17 10:43 WITHDRAWAL SX Plan: WITHDRAWAL SX
[2017-12-14] MEDS: PRENATAL VITAMINS W/ FOLIC ACID TABLET (FP) PO SCH (10:49)
[2017-12-14] MEDS: NICOTINE 14 MG/24 HOURS TOPICAL PATCH TD SCH (10:49)
[2017-12-14 11:12] LABS: CHLORIDE 113 mmol/L (98-107); POTASSIUM 3.6 mmol/L (3.5-5.1); SODIUM 143 mmol/L (136-145)
[2017-12-14 11:24] LABS: ALBUMIN 3.4 g/dl (3.4-5.0); ALK PHOS 68 U/L (45-117); ANION GAP 6 (8-16); BILIRUBIN,TOTAL 0.5 mg/dL (0.2-1.0); BLOOD UREA NITROGEN 11 mg/dL (7-18); CALCIUM 8.3 mg/dL (8.5-10.1); CO2 24 mmol/L (21-32); GLUCOSE,RANDOM 117 mg/dL (74-106); SGOT/AST 11 U/L (15-37); SGPT/ALT 18 U/L (12-78); TOT PROT 6.2 g/dl (6.4-8.2)
--- NOTE | 2017-12-14 13:35 | EKG ---
Test Reason : Blood Pressure : / mmHG Vent. Rate : 056 BPM Atrial Rate : 056 BPM P-R Int : 150 ms QRS Dur : 090 ms QT Int : 424 ms P-R-T Axes : 071 006 040 degrees QTc Int : 409 ms SINUS BRADYCARDIA OTHERWISE NORMAL ECG WHEN COMPARED WITH ECG OF 15-MAR-2017 22:29, NO SIGNIFICANT CHANGE WAS FOUND Confirmed by MD STEVE, JOHN ([id number]) on 12/14/2017 1:35:10 PM Referred By: Confirmed By:JOHN WILSON MD
--- NOTE | 2017-12-14 15:50 | CONSULT ---
[facility] Psychiatric Consult - Data Date of interview: 12/14/17 Admission source: [facility] Identifying data: Second contact with [facility] for this 42 y/o male seeking detox treatment on for alcohol and cannabis dependence.Patient is single without children,domiciled (lives with relatives),uneployed and reportedly deprived of any source of income. Substance Abuse History: Discussed with patient in this session.Mr Campbell confirmed a 25+ year history of substance abuse.Details in current [facility] report : Smoking history: Current every day smoker. Have you smoked in the past 12 months: Yes. Aproximately how many cigarettes per day: 10. Cigars Per Day: 0. Hx Chewing Tobacco Use: No. Initiated information on smoking cessation: Yes. 'Breaking Loose' booklet given: 12/13/17. - Substance & Tx. History. Hx Alcohol Use: Yes. Hx Substance Use: Yes. Substance Use Type: Marijuana. Hx Substance Use Treatment: Yes ([facility]). - Substances Abused. Alcohol. Route: Oral. Frequency: Daily. Amount used: LIQUOR- 3 PINTS, BEER- 2 SIX PACK. Age of first use: 16. Date of Last Use: 12/13/17 Medical History: Obesity and peripheral venous insufficiency (bilateral leg edema). Psychiatric History: Questionable and totally indifferent historian.Patient admits to a distant history of psychiatric hospitalizations." It was at some place in [place] years ago.I was a teenager.I no longer remember the details. " No report of past or recent OPD care in spite of self-report of diagnosis of MDD.Mr Campbell denies exposure to psychotropic medications.Denies history of suicide attempts. Physical/Sexual Abuse/Trauma History: Patient denies. Additional Comment: Urine Drug Screen Results: THC-Marijuana.Noted. Mental Status Exam - Mental Status Exam Alert and Oriented to: Time, Place, Person Cognitive Function: Good Patient Appearance: Unkempt, Disheveled (obese ; swollen lower extemities and leg ulcers) Mood: Euthymic Affect: Normal Range Patient Behavior: Fatigued, Cooperative Speech Pattern: Clear, Appropriate Voice Loudness: Normal Thought Process: Goal Oriented Thought Disorder: Not Present Hallucinations: Denies Suicidal Ideation: Denies Homicidal Ideation: Denies Insight/Judgement: Poor Sleep: Well Appetite: Good Muscle strength/Tone: Normal Gait/Station: Normal Psychiatric Findings - Problem List ([place] 1, 2,3) (1) Alcohol dependence with uncomplicated withdrawal Current Visit: Yes Status: Acute (2) Cannabis dependence, uncomplicated Current Visit: Yes Status: Acute (3) Nicotine dependence Current Visit: Yes Status: Acute Qualifiers: Nicotine product type: cigarettes Substance use status: in withdrawal Qualified Code(s): F17.213 - Nicotine dependence, cigarettes, with withdrawal - Initial Treatment Plan Initial Treatment Plan: Psychoeducation.Detoxification in progress.Close observation for sexual acting out behavior (history of masturbation in public).
[2017-12-14] MEDS ORDERED: THIAMINE HCL 100 MG TABLET (FP) PO SCH (22:00)
[2017-12-15] MEDS ORDERED: chlordiazePOXIDE 5 MG CAPSULE PO SCH (05:00)
[2017-12-15] MEDS: chlordiazePOXIDE HCL 25 MG CAPSULE PO SCH ×3 (06:03→18:18)
[2017-12-15] MEDS: PRENATAL VITAMINS W/ FOLIC ACID TABLET (FP) PO SCH (12:16)
[2017-12-15] MEDS: NICOTINE 14 MG/24 HOURS TOPICAL PATCH TD SCH (12:16)
--- NOTE | 2017-12-15 12:27 | PN ---
[facility] CIWA - CIWA Score Nausea/Vomitin-No Nausea/No Vomiting Muscle Tremors: 3 Anxiety: 4-Mod. Anxious/Guarded Agitation: 3 Paroxysmal Sweats: 2 Orientation: 0-Oriented Tacttile Disturbances: 0-None Auditory Disturbances: 0-None Visual Disturbances: 0-None Headache: 0-None Present CIWA-Ar Total Score: 12 S Progress Note (SOAP) Subjective: C/O SLIGHT ANXIETY,FATIGUE. ALERT O X 3. NAD Objective: 12/15/17 12:27 Vital Signs Temperature 97.6 F 12/15/17 09:58 Pulse Rate 74 12/15/17 09:58 Respiratory Rate 20 12/15/17 09:58 Blood Pressure 135/82 12/15/17 09:58 O2 Sat by Pulse Oximetry (%) Laboratory Last Values WBC 10.6 K/mm3 (4.0-10.0) H 12/14/17 07:30 RBC 4.65 M/mm3 (4.00-5.60) 12/14/17 07:30 Hgb 13.6 GM/dL (11.7-16.9) 12/14/17 07:30 Hct 41.0 % (35.4-49) 12/14/17 07:30 MCV 88.1 fl (80-96) 12/14/17 07:30 MCH 29.3 pg (25.7-33.7) 12/14/17 07:30 MCHC 33.3 g/dl (32.0-35.9) 12/14/17 07:30 RDW 14.1 % (11.9-15.9) 12/14/17 07:30 Plt Count 208 K/MM3 (134-434) 12/14/17 07:30 MPV 9.4 fl (7.5-11.1) 12/14/17 07:30 Sodium 143 mmol/L (136-145) 12/14/17 07:30 Potassium 3.6 mmol/L (3.5-5.1) 12/14/17 07:30 Chloride 113 mmol/L (98-107) H 12/14/17 07:30 Carbon Dioxide 24 mmol/L (21-32) 12/14/17 07:30 Anion Gap 6 (8-16) L 12/14/17 07:30 BUN 11 mg/dL (7-18) 12/14/17 07:30 Creatinine 1.0 mg/dL (0.7-1.3) 12/14/17 07:30 Creat Clearance w eGFR > 60 (>60) 12/14/17 07:30 Random Glucose 117 mg/dL (74-106) H D 12/14/17 07:30 Calcium 8.3 mg/dL (8.5-10.1) L 12/14/17 07:30 Total Bilirubin 0.5 mg/dL (0.2-1.0) 12/14/17 07:30 AST 11 U/L (15-37) L D 12/14/17 07:30 ALT 18 U/L (12-78) D 12/14/17 07:30 Alkaline Phosphatase 68 U/L (45-117) 12/14/17 07:30 Total Protein 6.2 g/dl (6.4-8.2) L 12/14/17 07:30 Albumin 3.4 g/dl (3.4-5.0) 12/14/17 07:30 RPR Titer Nonreactive (NONREACTIVE) 12/14/17 07:30 HIV 1&2 Antibody Screen Negative 12/14/17 07:30 HIV P24 Antigen Negative 12/14/17 07:30 Assessment: 12/15/17 12:27 WITHDRAWAL SX Plan: CONTINUE DETOX
[2017-12-15 16:55] LABS: URINE APPEARANCE CLEAR; URINE BILIRUBIN NEGATIVE (<2.0 mg/dL); URINE BLOOD 3+ (NEGATIVE); URINE COLOR LTYELLOW; URINE GLUCOSE (UA) NEGATIVE (NEGATIVE); URINE KETONE NEGATIVE (NEGATIVE); URINE LEUK ESTERASE NEGATIVE (NEGATIVE); URINE NITRITE NEGATIVE (NEGATIVE); URINE PROTEIN NEGATIVE (NEGATIVE); URINE UROBILINOGEN NEGATIVE mg/dL (0.2-1.0)
[2017-12-15 17:26] LABS: EPI CELLS RARE /HPF (FEW); URINE MUCUS RARE
[2017-12-15 17:54] VITALS: BP 127/73; PULSE 77; TEMP 96
--- NOTE | 2017-12-15 19:32 | PN ---
[facility] Progress Note Note: Patient c/o of swelling and pain on both lower extremities. Denies chest pain, SOB, vertigo or paresthesia. Vital Signs Temperature 96.0 F L 12/15/17 17:53 Pulse Rate 77 12/15/17 17:53 Respiratory Rate 18 12/15/17 17:53 Blood Pressure 127/73 12/15/17 17:53 O2 Sat by Pulse Oximetry (%) Laboratory Last Values WBC 10.6 K/mm3 (4.0-10.0) H 12/14/17 07:30 RBC 4.65 M/mm3 (4.00-5.60) 12/14/17 07:30 Hgb 13.6 GM/dL (11.7-16.9) 12/14/17 07:30 Hct 41.0 % (35.4-49) 12/14/17 07:30 MCV 88.1 fl (80-96) 12/14/17 07:30 MCH 29.3 pg (25.7-33.7) 12/14/17 07:30 MCHC 33.3 g/dl (32.0-35.9) 12/14/17 07:30 RDW 14.1 % (11.9-15.9) 12/14/17 07:30 Plt Count 208 K/MM3 (134-434) 12/14/17 07:30 MPV 9.4 fl (7.5-11.1) 12/14/17 07:30 Sodium 143 mmol/L (136-145) 12/14/17 07:30 Potassium 3.6 mmol/L (3.5-5.1) 12/14/17 07:30 Chloride 113 mmol/L (98-107) H 12/14/17 07:30 Carbon Dioxide 24 mmol/L (21-32) 12/14/17 07:30 Anion Gap 6 (8-16) L 12/14/17 07:30 BUN 11 mg/dL (7-18) 12/14/17 07:30 Creatinine 1.0 mg/dL (0.7-1.3) 12/14/17 07:30 Creat Clearance w eGFR > 60 (>60) 12/14/17 07:30 Random Glucose 117 mg/dL (74-106) H D 12/14/17 07:30 Calcium 8.3 mg/dL (8.5-10.1) L 12/14/17 07:30 Total Bilirubin 0.5 mg/dL (0.2-1.0) 12/14/17 07:30 AST 11 U/L (15-37) L D 12/14/17 07:30 ALT 18 U/L (12-78) D 12/14/17 07:30 Alkaline Phosphatase 68 U/L (45-117) 12/14/17 07:30 Total Protein 6.2 g/dl (6.4-8.2) L 12/14/17 07:30 Albumin 3.4 g/dl (3.4-5.0) 12/14/17 07:30 Urine Color Ltyellow 12/15/17 13:20 Urine Appearance Clear 12/15/17 13:20 Urine pH 5.0 (5.0-8.0) 12/15/17 13:20 Ur Specific [place] 1.011 (1.001-1.035) 12/15/17 13:20 Urine Protein Negative (NEGATIVE) 12/15/17 13:20 Urine Glucose (UA) Negative (NEGATIVE) 12/15/17 13:20 Urine Ketones Negative (NEGATIVE) 12/15/17 13:20 Urine Blood 3+ (NEGATIVE) H 12/15/17 13:20 Urine Nitrite Negative (NEGATIVE) 12/15/17 13:20 Urine Bilirubin Negative (<2.0 mg/dL) 12/15/17 13:20 Urine Urobilinogen Negative mg/dL (0.2-1.0) 12/15/17 13:20 Ur Leukocyte Esterase Negative (NEGATIVE) 12/15/17 13:20 Urine WBC (Auto) 5 /hpf (3-5) 12/15/17 13:20 Urine RBC (Auto) 158 /hpf (0-3) 12/15/17 13:20 Ur Epithelial Cells Rare /HPF (FEW) 12/15/17 13:20 Urine Mucus Rare 12/15/17 13:20 RPR Titer Nonreactive (NONREACTIVE) 12/14/17 07:30 HIV 1&2 Antibody Screen Negative 12/14/17 07:30 HIV P24 Antigen Negative 12/14/17 07:30 A/P Patient AOx3 in no apparent distress Normal HR and Rhythm Lungs clear throughout no adventitious breath sounds + bilateral edema +3 on both lower extremities, + hyperpigmentation BLE, pulses present throughout, area warm to touch Elevate Lower extremities Keflex 500mg q6h x 7 days mupirocin top cream BID Ibuprofen 400mg PRN Continue to monitor
--- NOTE | 2017-12-15 21:51 | DS ---
[facility] Detox Discharge Summary Admission Date: 12/13/17 Discharge Date: 12/15/17 - History Present History: Alcohol Dependence Pertinent Past History: NICOTINE DEPENDENCE DEPRESSION - Physical Exam Results Vital Signs: Vital Signs Temperature 96.0 F L 12/15/17 17:53 Pulse Rate 77 12/15/17 17:53 Respiratory Rate 18 12/15/17 17:53 Blood Pressure 127/73 12/15/17 17:53 O2 Sat by Pulse Oximetry (%) Pertinent Admission Physical Exam Findings: WITHDRAWAL SX'S - Treatment Hospital Course: Discharged Condition Good - Medication Discharge Medications: Ambulatory Orders Cephalexin Monohydrate [Keflex -] 500 mg PO Q6HPO 7 Days #28 capsule 12/15/17 - Diagnosis (1) Bilateral cellulitis of lower leg Current Visit: Yes Status: Acute (2) Alcohol dependence with uncomplicated withdrawal Current Visit: Yes Status: Chronic (3) Nicotine dependence Current Visit: Yes Status: Chronic Qualifiers: Nicotine product type: cigarettes Substance use status: in withdrawal Qualified Code(s): F17.213 - Nicotine dependence, cigarettes, with withdrawal (4) Depressed Current Visit: Yes Status: Chronic Qualifiers: Depression Type: unspecified Qualified Code(s): F32.9 - Major depressive disorder, single episode, unspecified (5) Inappropriate sexual behavior Current Visit: Yes Status: Chronic (6) Socially inappropriate behavior Current Visit: Yes Status: Chronic (7) Edema of both lower legs due to peripheral venous insufficiency Current Visit: Yes Status: Chronic - AMA Did Patient Leave Against Medical Advice: No (ADMINISTARTIVE DC FOR INDECENT EXPOSURE OF GENITALS REPEATED TIMES)
--- NOTE | 2017-12-15 21:59 | PN ---
[facility] Progress Note Note: INFORMED CLIENT WITH INAPPROPRIATE BEHAVIOR WITH EXPOSING GENITALS WHILE ON THE UNIT TO OTHER STAFF AND PATIENTS. CLIENT CONT WITH SUCH BEHAVIOR AFTER CLIENT WAS SPOKEN TO. HE IS BEING ADMINISTRATIVELY DC DUE TO NON COMPLIANCE A INDECENT SEXUAL EXPOSURE OF SELF. CLIENT LEFT UNIT IN STABLE CONDITION. MADE AWARE TO RN ALLERGY ANTIBIOTIC RX AT [facility] FOR RECENT DX OF CELLULITIS OF BLE. D/ W CLIENT TO F/U WITH NEAREST EMERGENCY ROOM FOR ANY WORSENING WITHDRAWAL SX'S. MAY ALSO FOLLOW UP WITH OUTPATIENT TXMENT. CLIENT UNRECEPTIVE AT THIS TIME DUE TO BEING AGITATED REGARDING ADMINISTRATIVE DC. CLIENT REQUESTED STAFF TO CALL [facility]. THEY DID. CLIENT WAS ESCORTED OFF UNIT BY [facility]. INFORMED THEY WILL BE TAKING HIM TO [place] [facility] FOR EVAL. Vital Signs Temperature 96.0 F L 12/15/17 17:53 Pulse Rate 77 12/15/17 17:53 Respiratory Rate 18 12/15/17 17:53 Blood Pressure 127/73 12/15/17 17:53 O2 Sat by Pulse Oximetry (%)
[2017-12-15] MEDS ORDERED: MUPIROCIN CA 2% TOPICAL CREAM 15 GM TUBE TP SCH (22:00)
[2017-12-16] MEDS ORDERED: CEPHALEXIN MONOHYDRATE 500 MG CAPSULE (UD) PO SCH
[2017-12-16] MEDS ORDERED: chlordiazePOXIDE HCL 10 MG CAPSULE PO SCH (05:00)
[2017-12-16] MEDS ORDERED: chlordiazePOXIDE 5 MG CAPSULE PO SCH (05:00)
[2017-12-17] MEDS ORDERED: chlordiazePOXIDE HCL 10 MG CAPSULE PO SCH (05:00)
== END 2017-12-15 22:00 | disposition left against medical advice (07) | DRG 775 ==
LOC: YASAS 20:15 → Y3N 22:52
PROVIDERS: ADMIT Internal Medicine; ATTEND Internal Medicine
PROC: HZ2ZZZZ Detoxification Services for Substance Abuse Treatment (ICD-10-PCS; principal; 2017-12-13)
DX: F10.230 Alcohol dependence with withdrawal, uncomplicated (principal); F12.20 Cannabis dependence, uncomplicated; F17.210 Nicotine dependence, cigarettes, uncomplicated; L03.116 Cellulitis of left lower limb; I87.2 Venous insufficiency (chronic) (peripheral); E66.9 Obesity, unspecified; Z68.38 Body mass index [BMI] 38.0-38.9, adult; Z86.11 Personal history of tuberculosis
CPT/HCPCS: 36415; 71046-TC-FY; 80053; 81003; 81015; 85027; 86593; 87389; 93005; 93010

== ENCOUNTER 2018-10-23 14:30 | Inpatient (IN) | payer OTHER ==
[2018-10-23 15:19] VITALS: BMI 37.5
--- NOTE | 2018-10-23 15:32 | HP ---
CIWA Score Nausea/Vomitin Muscle Tremors: 2 Anxiety: 2 Agitation: 2 Paroxysmal Sweats: 1-Minimal Palms Moist Orientation: 0-Oriented Tacttile Disturbances: 1-Very Mild Itch/Numbness Auditory Disturbances: 1-Very Mild Visual Disturbances: 0-None Headache: 2-Mild CIWA-Ar Total Score: 13 - Admission Criteria [facility] Guidelines: Admission for Medically Managed Detox: Requires at least one of the followin. CIWA greater than 12 2. Seizures within the past 24 hours 3. Delirium tremens within the past 24 hours 4. Hallucinations within the past 24 hours 5. Acute intervention needed for co occurring medical disorder 6. Acute intervention needed for co occurring psychiatric disorder 7. Severe withdrawal that cannot be handled at a lower level of care (continued vomiting, continued diarrhea, abnormal vital signs) requiring intravenous medication and/or fluids 8. Patient presents the following: CIWA greater than 12 Admission Criteria Met: Admission criteria met Admission ROS BHS - HPI Chief Complaint: i need help to stop drinking alcohol and marijuana Allergies/Adverse Reactions: Allergies Allergy/AdvReac Type Severity Reaction Status Date / Time No Known Allergies Allergy Verified 10/23/18 17:15 History of Present Illness: this 43 years old male with alcohol and marijuana dependence seeking detox, withdrawal symptom, multiple admissions in detox but keep relapsing last detox [facility] 12/13/17 to fx of left humerus 2 weeks ago wearing the arm sling,has appointment at [facility] in 2 weeks nicotine dependence 10 cigarette longest period of sobriety 2 years Exam Limitations: No Limitations - Ebola screening Have you traveled outside of the country in the last 21 days: No (N) Have you had contact with anyone from an Ebola affected area: No Have you been sick,other than usual withdrawal symptoms: No Do you have a fever: No - Review of Systems Constitutional: Loss of Appetite, Malaise, Night Sweats, Changes in sleep, Weakness EENT: reports: Nose Congestion Respiratory: reports: No Symptoms reported, Other (asthma) Cardiac: reports: No Symptoms Reported GI: reports: Nausea, Poor Appetite, Abdominal cramping : reports: No Symptoms Reported Musculoskeletal: reports: Other (fx of left humorus 2 weeks ago) Integumentary: reports: Dryness Endocrine: reports: No Symptoms Reported Hematology: reports: No Symptoms Reported Psychiatric: reports: Judgement Intact, Mood/Affect Appropiate, Orientated x3, Agitated, other Patient History - Patient Medical History Hx Anemia: No Hx Asthma: No Hx Chronic Obstructive Pulmonary Disease (COPD): No Hx Cancer: No Hx Cardiac Disorders: No Hx Congestive Heart Failure: No Hx Hypertension: No Hx Hypercholesterolemia: No Hx Pacemaker: No HX Cerebrovascular Accident: No Hx Seizures: No Hx Dementia: No Hx Diabetes: No Hx Gastrointestinal Disorders: No Hx Liver Disease: No Hx Genitourinary Disorders: No Hx Sexually Transmitted Disorders: No Hx Renal Disease (ESRD): No Hx Thyroid Disease: No Hx Human Immunodeficiency Virus (HIV): No (last 03/08 negative) Hx Hepatitis C: No Hx Depression: Yes (Not on medication) Hx Suicide Attempt: No Hx Bipolar Disorder: No Hx Schizophrenia: No Other Medical History: no suicidal,no homicidal,venous stsis both legs s/p surgery,fxof lt.humerus - Patient Surgical History Past Surgical History: Yes Hx Neurologic Surgery: No Hx Cataract Extraction: No Hx Cardiac Surgery: No Hx Lung Surgery: No Hx Breast Surgery: No Hx Breast Biopsy: No Hx Abdominal Surgery: No Hx Appendectomy: No Hx Cholecystectomy: No Hx Genitourinary Surgery: No Hx Section: No Hx Orthopedic Surgery: No Other Surgical History: surgery both legs veins in 1999 ,wearing rachel stocking Anesthesia Reaction: No - PPD History Previous Implant?: Yes Documented Results: Positive w/proof Implanted On Prior [facility] Admission?: No Results: chest xray last PPD to be Administered?: No - Smoking Cessation Smoking history: Current every day smoker Have you smoked in the past 12 months: Yes Aproximately how many cigarettes per day: 10 Cigars Per Day: 0 Hx Chewing Tobacco Use: No Initiated information on smoking cessation: Yes 'Breaking Loose' booklet given: 10/23/18 - Substance & Tx. History Hx Alcohol Use: Yes Hx Substance Use: Yes Substance Use Type: Alcohol, Marijuana Hx Substance Use Treatment: Yes ([facility] 12/13/17 to 12/15/17 not completed) - Substances Abused Alcohol Route: Oral Frequency: Daily Amount used: 3 pints of liquor/3 of 6 packs of 12 ozs Age of first use: 16 Date of Last Use: 10/22/18 Marijuana/Hashish Route: Smoking Frequency: Daily Amount used: 20$ Age of first use: 16 Date of Last Use: 10/22/18 Family Disease History - Family Disease History Family History: Denies Admission Physical Exam [facility] - Vital Signs Vital Signs: Vital Signs - 24 hr 10/23/18 15:17 Temperature 96.8 F L Pulse Rate 82 Respiratory 18 Rate Blood Pressure 129/67 - Physical General Appearance: Yes: Moderate Distress, Tremorous, Irritable, Sweating, Anxious HEENTM: Yes: Normal ENT Inspection, REBEKAH, Pharynx Normal, Nasal Congestion Respiratory: Yes: Lungs Clear, Normal Breath Sounds, No Respiratory Distress Neck: Yes: Within Normal Limits, No masses,lesions,Nodules, Supple Breast: Yes: Within Normal Limits Cardiology: Yes: Within Normal Limits, Regular Rhythm, Regular Rate, S1, S2 Abdominal: Yes: Within Normal Limits, Normal Bowel Sounds, Non Tender, Soft Genitourinary: Yes: Within Normal Limits Musculoskeletal: Yes: Back pain, Muscle Pain Extremities: Yes: Other (pain over the uppr arm left s/p fx of laft humerus wearing arm sling 2 weeks ago has appointment wt [facility] s/p surgery veins both legs wearing rachel stocking) Neurological: Yes: Alert, Motor Strength 5/5, Normal Mood/Affect Integumentary: Yes: Dry Lymphatic: Yes: Within Normal Limits - Diagnostic (1) Alcohol dependence with uncomplicated withdrawal Current Visit: No Status: Chronic (2) Cannabis dependence, uncomplicated Current Visit: No Status: Acute (3) Edema of both lower legs due to peripheral venous insufficiency Current Visit: No Status: Chronic (4) Obese Current Visit: No Status: Chronic Qualifiers: Obesity type: unspecified obesity type Serious obesity comorbidity presence : unspecified whether serious comorbidity present Body mass index: BMI 38.0- 38.9 (5) Venous insufficiency of both lower extremities Current Visit: No Status: Chronic (6) Fracture of left humerus Current Visit: Yes Status: Acute (7) Depression Current Visit: Yes Status: Acute (8) Positive PPD Current Visit: Yes Status: Acute Cleared for Admission [facility] - Detox or Rehab [facility] Level of Care: Medically Managed Detox Regimen/Protocol: Librium S Breath Alcohol Content Breath Alcohol Content: 0 Urine Drug Screen - Results Drug Screen Negative: Yes Urine Drug Screen Results: THC-Marijuana, BZO-Benzodiazepines Inpatient Rehab Admission - Rehab Decision to Admit Inpatient rehab admission?: No
[2018-10-23] MEDS ORDERED: MAG HYDROX/AL HYDROX/SIMETH 30 ML UNIT-DOSE CUP PO PRN (15:56)
[2018-10-23] MEDS ORDERED: MAGNESIUM HYDROX 2400MG/30ML ORAL SUSPENSION 30 ML CUP PO PRN (15:56)
[2018-10-23] MEDS ORDERED: P-EPHED 60MG/TRIPROLIDI 2.5MG TABLET PO PRN (15:56)
[2018-10-23] MEDS ORDERED: LOPERAMIDE HCL 2 MG CAPSULE PO PRN (15:56)
[2018-10-23] MEDS ORDERED: chlordiazePOXIDE HCL 25 MG CAPSULE PO PRN (15:56)
[2018-10-23] MEDS ORDERED: MAGNESIUM CITRATE 300 ML BOTTLE PO PRN (15:56)
[2018-10-23] MEDS ORDERED: MENTHOL/PHENOL 1 EACH UD MM PRN (15:56)
[2018-10-23] MEDS ORDERED: ACETAMINOPHEN 325 MG TABLET (FP) PO PRN (15:56)
[2018-10-23] MEDS ORDERED: guaiFENesin/D-METHORPHAN HB 10 ML UNIT-DOSE CUPS PO PRN (15:56)
[2018-10-23] MEDS ORDERED: IBUPROFEN 400 MG TABLET (FP) PO PRN (15:56)
[2018-10-23] MEDS ORDERED: MELATONIN 5 MG TABLETS PO PRN (22:00)
[2018-10-23] MEDS: chlordiazePOXIDE HCL 25 MG CAPSULE PO SCH (22:42)
[2018-10-23] MEDS: THIAMINE HCL 100 MG TABLET (FP) PO SCH (22:42)
[2018-10-24] MEDS: chlordiazePOXIDE HCL 25 MG CAPSULE PO SCH ×4 (06:00→23:02)
[2018-10-24 09:56] LABS: URINE APPEARANCE CLEAR; URINE BILIRUBIN NEGATIVE (<2.0 mg/dL); URINE COLOR LTYELLOW; URINE GLUCOSE (UA) NEGATIVE (NEGATIVE); URINE KETONE NEGATIVE (NEGATIVE); URINE LEUK ESTERASE TRACE (NEGATIVE); URINE NITRITE NEGATIVE (NEGATIVE); URINE PROTEIN NEGATIVE (NEGATIVE); URINE UROBILINOGEN NEGATIVE mg/dL (0.2-1.0)
[2018-10-24] MEDS ORDERED: PRENATAL VITAMINS W/ FOLIC ACID TABLET (FP) PO SCH (10:00)
[2018-10-24] MEDS ORDERED: SELENIUM SULFIDE 2.5% LOTION 4 OZ. TP SCH (10:00)
[2018-10-24 10:23] LABS: ALK PHOS 102 U/L (45-117); ANION GAP 7 MMOL/L (8-16); BILIRUBIN,TOTAL 0.7 mg/dL (0.2-1); BLOOD UREA NITROGEN 11 mg/dL (7-18); CALCIUM 8.4 mg/dL (8.5-10.1); CHLORIDE 112 mmol/L (98-107); CO2 28 mmol/L (21-32); CREATININE 0.9 mg/dL (0.55-1.3); GLUCOSE,RANDOM 86 mg/dL (74-106); POTASSIUM 4.2 mmol/L (3.5-5.1); SGOT/AST 11 U/L (15-37); SGPT/ALT 16 U/L (13-61); SODIUM 147 mmol/L (136-145); TOT PROT 5.7 g/dl (6.4-8.2)
[2018-10-24 11:04] LABS: EPI CELLS RARE /HPF (FEW); URINE MUCUS RARE
[2018-10-24 11:53] LABS: HEMATOCRIT 37.1 % (35.4-49); HEMOGLOBIN 12.4 GM/dL (11.7-16.9); MCHC 33.4 g/dl (32.0-35.9); MEAN CELL VOLUME 89.8 fl (80-96); MEAN PLT VOLUME 9.5 fl (7.5-11.1); PLATELET COUNT 241 K/MM3 (134-434); RBC 4.13 M/mm3 (4.00-5.60); RDW 14.2 % (11.9-15.9); WHITE BLOOD COUNT 9.1 K/mm3 (4.0-10.0)
--- NOTE | 2018-10-24 14:28 | PN ---
S CIWA - CIWA Score Nausea/Vomitin-Mild Nausea/No Vomiting Muscle Tremors: 3 Anxiety: 1-Mildly Anxious Agitation: 1-Slight > Activity Paroxysmal Sweats: 1-Minimal Palms Moist Orientation: 1-Uncertain about Date Tacttile Disturbances: 0-None Auditory Disturbances: 0-None Visual Disturbances: 0-None Headache: 1-Very Mild CIWA-Ar Total Score: 9 S Progress Note (SOAP) Subjective: tremor sweating left upper arm fx x 2 weeks ago hard cast with sling fingers warm pink brisk capillar refilled swollen lower legs embolism stocking elevation of both legs patient requests dentist, diaper machine tender, ophthelmology and CAT scane and CT scan for his fx arm patient wants xanax for insomnia health teaching on negative consequences of xanax discuss purpose of detox and rehab follow Objective: 10/24/18 14:28 Vital Signs Temperature 97.0 F L 10/24/18 13:47 Pulse Rate 69 10/24/18 13:47 Respiratory Rate 18 10/24/18 13:47 Blood Pressure 115/72 10/24/18 13:47 O2 Sat by Pulse Oximetry (%) Laboratory Last Values WBC 9.1 K/mm3 (4.0-10.0) 10/24/18 07:00 RBC 4.13 M/mm3 (4.00-5.60) 10/24/18 07:00 Hgb 12.4 GM/dL (11.7-16.9) 10/24/18 07:00 Hct 37.1 % (35.4-49) 10/24/18 07:00 MCV 89.8 fl (80-96) 10/24/18 07:00 MCH 30.0 pg (25.7-33.7) 10/24/18 07:00 MCHC 33.4 g/dl (32.0-35.9) 10/24/18 07:00 RDW 14.2 % (11.9-15.9) 10/24/18 07:00 Plt Count 241 K/MM3 (134-434) 10/24/18 07:00 MPV 9.5 fl (7.5-11.1) 10/24/18 07:00 Sodium 147 mmol/L (136-145) H 10/24/18 07:00 Potassium 4.2 mmol/L (3.5-5.1) 10/24/18 07:00 Chloride 112 mmol/L (98-107) H 10/24/18 07:00 Carbon Dioxide 28 mmol/L (21-32) 10/24/18 07:00 Anion Gap 7 MMOL/L (8-16) L 10/24/18 07:00 BUN 11 mg/dL (7-18) 10/24/18 07:00 Creatinine 0.9 mg/dL (0.55-1.3) 10/24/18 07:00 Creat Clearance w eGFR > 60 (>60) 10/24/18 07:00 Random Glucose 86 mg/dL (74-106) 10/24/18 07:00 Calcium 8.4 mg/dL (8.5-10.1) L 10/24/18 07:00 Total Bilirubin 0.7 mg/dL (0.2-1) 10/24/18 07:00 AST 11 U/L (15-37) L 10/24/18 07:00 ALT 16 U/L (13-61) 10/24/18 07:00 Alkaline Phosphatase 102 U/L (45-117) 10/24/18 07:00 Total Protein 5.7 g/dl (6.4-8.2) L 10/24/18 07:00 Albumin 3.0 g/dl (3.4-5.0) L 10/24/18 07:00 Urine Color Ltyellow 10/24/18 08:00 Urine Appearance Clear 10/24/18 08:00 Urine pH 5.0 (5.0-8.0) 10/24/18 08:00 Ur Specific [place] 1.011 (1.010-1.035) 10/24/18 08:00 Urine Protein Negative (NEGATIVE) 10/24/18 08:00 Urine Glucose (UA) Negative (NEGATIVE) 10/24/18 08:00 Urine Ketones Negative (NEGATIVE) 10/24/18 08:00 Urine Blood Negative (NEGATIVE) 10/24/18 08:00 Urine Nitrite Negative (NEGATIVE) 10/24/18 08:00 Urine Bilirubin Negative (<2.0 mg/dL) 10/24/18 08:00 Urine Urobilinogen Negative mg/dL (0.2-1.0) 10/24/18 08:00 Ur Leukocyte Esterase Trace (NEGATIVE) 10/24/18 08:00 Urine WBC (Auto) 7 /hpf (3-5) 10/24/18 08:00 Urine RBC (Auto) None /hpf (0-3) 10/24/18 08:00 Ur Epithelial Cells Rare /HPF (FEW) 10/24/18 08:00 Urine Mucus Rare 10/24/18 08:00 RPR Titer Nonreactive (NONREACTIVE) 10/24/18 07:00 lab noted Assessment: 10/24/18 14:28 alcohol withdrwal sx Plan: continue detox continue redirect patient focus on alcohol detox and transition to rehab
--- NOTE | 2018-10-24 15:45 | CONSULT ---
[facility] Psychiatric Consult - Data Date of interview: 10/24/18 Admission source: [facility] Identifying data: Patient declines psychiatric evaluation. Winessed by medical students.
[2018-10-24 17:27] VITALS: BP 109/67; PULSE 87; TEMP 98
[2018-10-24] MEDS: THIAMINE HCL 100 MG TABLET (FP) PO SCH (23:01)
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
[2018-10-25] MEDS: chlordiazePOXIDE HCL 25 MG CAPSULE PO SCH (07:38)
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
[2018-10-25] MEDS ORDERED: chlordiazePOXIDE 5 MG CAPSULE PO SCH (23:00)
[2018-10-26] MEDS ORDERED: chlordiazePOXIDE HCL 10 MG CAPSULE PO SCH (23:00)
== END 2018-10-25 08:46 | disposition home or self-care (01) | DRG 775 ==
LOC: YASAS 14:30 → Y3N 17:12
PROVIDERS: ADMIT Surgery; ATTEND Surgery
PROC: HZ2ZZZZ Detoxification Services for Substance Abuse Treatment (ICD-10-PCS; principal; 2018-10-23)
DX: F10.230 Alcohol dependence with withdrawal, uncomplicated (principal); F12.20 Cannabis dependence, uncomplicated; F17.213 Nicotine dependence, cigarettes, with withdrawal; F32.9 Major depressive disorder, single episode, unspecified; R60.0 Localized edema; I87.2 Venous insufficiency (chronic) (peripheral); E66.9 Obesity, unspecified; Z68.37 Body mass index [BMI] 37.0-37.9, adult; R76.11 Nonspecific reaction to tuberculin skin test without active tuberculosis; Z87.81 Personal history of (healed) traumatic fracture
CPT/HCPCS: 36415; 80053; 81003; 81015; 85027; 86593